=== PATIENT | male | born 1945 | race Caucasian/White ===

== ENCOUNTER 2024-08-13 12:15 | Outpatient (CLI) | payer MEDICARE, OTHER, SELFPAY ==
--- NOTE | ~2024-08-13 | PE_ITS ---
EXAMINATION: PET_PETPSMAST_PT DATE: 08/13/2024 15:21 INDICATION: Prostate cancer TECHNIQUE: 4.915 mCi of Illucix Ga-[id number]) was administered i.v. Low dose computed herbie graphy (CT) images were acquired from the base of the brain to the base of the brain to the proximal thighs for attenuation correction and anatomic localization. Positron emission tomography (PET) image s were acquired in the same distribution beginning 92 minutes after injection. Images including fused PET/CT images were reconstructed in axial, coronal, and sagittal planes. Automated exposure control technique was employed. The dose-length product was 1107.94mGy-cm. COMPARISON: None FINDINGS: Head/neck: Typical pattern of symmetric physiologic increased activity in the lacrimal, parotid and submandibula r glands as well as along the mucosa of the nasal and oral cavities, pharynx and hypopharynx. No path ologically enlarged cervical lymphadenopathy or suspicious foci of increased uptake in the visualized head or neck. Chest: Mild biapical pleural-parenchymal scarring. Pneumatocele at the anterior right apex. Calcified right lower lobe nodule consistent with old granulomatous disease. There is mild discoid atelectasis at the lingula and bilateral lower lobes. No suspicious pulmonary nodules, pneumonia, pulmonary edema or pl eural effusion. Heart size is normal. No pericardial effusion. Thoracic aorta is normal in caliber. N o pathologically enlarged or PSMA avid thoracic lymphadenopathy. Abdomen/pelvis/proximal thighs: Physiologic renal accumulation and excretion of activity in the kidneys, bladder and along portions o f ureters. Photopenic defects associated with bilateral renal cysts the largest on the left measuring 5.1 cm. Nonobstructing 2 mm right renal stone. Prostatomegaly measuring 5.5 x 4.1 cm. There is relat ively intense focus of uptake with maximal SUV of 21.6 at the right posterior margin of the prostate. There is a smaller and less intense focus slightly to the left of the central prostate with maximal SUV of 6.3. Normal degree and slightly heterogenous pattern of increased uptake throughout the liver and spleen without radiologic correlate or dominant PSMA avid lesion. There are couple low-attenuatio n cysts in the left hepatic lobe measuring up to 1.5 cm. The gallbladder, pancreas and bilateral adre nal glands are normal. Moderate uptake scattered throughout the bowels with typical duodenal and prox imal jejunal predominance and without radiologic correlate, also likely physiologic. There is moderat e colonic diverticulosis with a sigmoid predominance and without adjacent inflammatory change to sugg est diverticulitis. Normal appendix. Small fat-containing left inguinal hernia. No other abnormal foc i of increased uptake or pathologically enlarged lymphadenopathy in the abdomen, pelvis or proximal t highs. Musculoskeletal: Mild S-shaped curvature of the spine with severe cervical and lumbar and moderate to severe thoracic spondylosis. Small left supra-acetabular bone island without without PSMA activity. Mild sclerosis at the margins of a couple small Schmorl's nodes also without PSMA uptake along the inferior endplate o f T8 and L1. No suspicious lytic, blastic or abnormally PSMA avid bone lesions. IMPRESSION: 1. 2 foci of increased PSA may uptake in the prostate consistent with primary prostate cancer, more i ntense at the right posterior prostate and small and less intense focus slightly to the left of the c entral gland. 2. No other PSMA avid lesions suspicious for metastatic disease Reviewed, dictated and finalized at location A. IMPRESSION: 1. 2 foci of increased PSA may uptake in the prostate consistent with primary p rostate cancer, more intense at the right posterior prostate and small and less intense focus slightly to the left of the central gland. 2. No other PSMA avid lesions suspicious for metastatic disease
== END 2024-08-13 12:16 | disposition home or self-care (01) ==
PROVIDERS: Visit Provider Urology
DX: C61 Malignant neoplasm of prostate (principal)
CPT/HCPCS: 78815; A9596